=== PATIENT | male | born 1940 | race Caucasian/White ===

== ENCOUNTER 2022-07-11 20:07 | Emergency (ER) | payer MEDICARE, OTHER ==
[2022-07-11] MEDS ORDERED: TETANUS/DIPHTHERIA/PERTUSSIS 0.5 ML SYRINGE IM ONE (20:13)
[2022-07-11] MEDS ORDERED: LIDOCAINE 1%-EPI 1:100000 20 ML MDV SUBQ STA (20:13)
--- NOTE | 2022-07-11 20:15 | ED Physician Documentation ---
PD HPI HEAD INJURY - Stated complaint Stated Complaint: GLF FACE LAC - History obtained from History obtained from: Patient - Additional information Additional information: 81-year-old gentleman on Eliquis with unknown tetanus status was going up a single steps to get in his house with his arms full and slipped forward and hit his head on the door. This happened just about 25 minutes ago. There is no loss of consciousness. He has a mild headache. He has 2 large wounds to his forehead. No other injuries. PD PAST MEDICAL HISTORY - Present Medications Home Medications: Ambulatory Orders Medication Instructions Recorded Confirmed Apixaban [Eliquis] 2.5 mg PO BID 07/11/22 07/11/22 Bacitracin Zinc Oint 1 applic TOP BID #1 each 07/11/22 Febuxostat [Uloric] 40 mg PO DAILY 07/11/22 07/11/22 Fluticasone [Flonase] 2 sprays FITZ BID 07/11/22 07/11/22 Hydralazine HCl 150 mg PO DAILY 07/11/22 07/11/22 Metoprolol Succinate [Kapspargo 50 mg PO DAILY 07/11/22 07/11/22 Sprinkle] Torsemide 20 mg PO DAILY 07/11/22 07/11/22 Valsartan/Hydrochlorothiazide 1 each PO DAILY 07/11/22 07/11/22 [Diovan Hct 320-25 mg Tablet] - Allergies Allergies/Adverse Reactions: Allergies Allergy/AdvReac Type Severity Reaction Status Date / Time No Known Drug Allergies Allergy Verified 07/11/22 20:28 PD ED PE NORMAL - Vitals Vital signs reviewed: Yes - General General: Alert and oriented X 3, No acute distress - HEENT HEENT: PERRL, EOMI, Other (There are 4 lacerations to the forehead, 2 of them are small measuring about 1 cm each, 2 are larger measuring 3 and 4 cm respectively. They're mostly vertical.) - Neck Neck: Supple, no meningeal sign, No bony TTP - Neuro Neuro: Alert and oriented X 3, No motor deficit, No sensory deficit, Normal speech Eye Opening: Spontaneous Motor: Obeys Commands Verbal: Oriented GCS Score: 15 - Psych Psych: Normal mood, Normal affect Results - Vitals Vitals: Vital Signs - 24 hr 07/11/22 20:07 Temperature 36.4 C L Heart Rate 72 Respiratory 16 Rate Blood Pressure 117/72 O2 Saturation 100 Oxygen O2 Source Room air - Rads (name of study) CT of the head and cervical spine show chronic and degenerative changes without acute fractures or intracranial injury. Relevant Findings:: Final report received, EMP independent interpretation of test Procedures - Laceration (location) Forehead laceration #1 Length in cm: 4 Wound type: Linear, Into subcut fat Neurovascular status: Sensory intact, Motor intact Anesthesia: Lidocaine 1% with epi Wound preparation: Irrigated copiously NS Skin layer closure: Prolene, Interrupted, Size #-0 - enter number (6-0), Sutures - enter # (14) Other: Patient tolerated well, No complications, Neurovascular intact, Tetanus booster given Forehead laceration #2 Length in cm: 3 Wound type: Linear, Into subcut fat Neurovascular status: Sensory intact, Motor intact Tendon involvement: Tendon intact Anesthesia: Lidocaine 1% with epi Wound preparation: Irrigated copiously NS Skin layer closure: Prolene, Size #-0 - enter number (6-0), Sutures - enter # (9) Other: Patient tolerated well, No complications, Neurovascular intact, Tetanus booster given Forehead laceration #3 Length in cm: 1 Wound type: Linear, Into subcut fat Anesthesia: Lidocaine 1% with epi Wound preparation: Irrigated copiously NS Skin layer closure: Prolene, Size #-0 - enter number (6-0), Sutures - enter # (1) Other: Patient tolerated well, No complications, Neurovascular intact, Tetanus booster given Forehead laceration #4 Length in cm: 1 Wound type: Linear, Into subcut fat Anesthesia: Lidocaine 1% with epi Wound preparation: Irrigated copiously NS Skin layer closure: Prolene, Interrupted, Size #-0 - enter number (6-0), Sutures - enter # (1) Departure - Departure Disposition: 01 Home, Self Care Clinical Impression: Laceration of multiple sites of face Condition: Good Record reviewed to determine appropriate education?: Yes Instructions: ED Laceration Facial Sutr Tape Prescriptions: Bacitracin Zinc Oint 1 applic TOP BID #1 each Comments: Come back for any signs of infection which would include: Redness, swelling, drainage, increased pain, or fevers. You can wash it soap and water. Keep it covered and moist with bacitracin ointment which is available over the counter; avoid neosporin. Follow-up with your physician in 6-7 days for suture removal.
--- NOTE | 2022-07-11 20:38 | CT Report ---
PROCEDURE: HEAD WO INDICATIONS: head inj TECHNIQUE: Noncontrast 4.5 mm thick angled axial sections acquired from the foramen magnum to the vertex. For r adiation dose reduction, the following was used: automated exposure control, adjustment of mA and/or kV according to patient size. COMPARISON: None. FINDINGS: Image quality: Good CSF spaces: Basal cisterns are patent. Lateral ventricles are symmetric. Volume: Vascular calcifications. 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 Volume loss is present. These findings are moderate. Brain: No intracranial hemorrhage. Cain-white differentiation is grossly maintained. More focal hypo attenuation is present within the anterior right frontal lobe (3/) Craniofacial structures: No displaced fracture. Sinuses are clear. Orbits are intact. IMPRESSION: No acute intracranial hemorrhage. Suspected chronic changes, including a focal area of hypoattenuatio n in the right frontal lobe, possibly an area of injury such as infarct (/), less likely edema rel ated to an underlying malignancy. Consider comparison to priors from outside, if available, versus MR I. Reviewed by: Elan Cox MD on 07/11/2022 8:37 PM PDT Approved by: Elan Cox MD on 07/11/2022 8:37 PM PDT Station ID: [id number]
--- NOTE | 2022-07-11 20:42 | CT Report ---
PROCEDURE: CERVICAL SPINE WO INDICATIONS: head inj TECHNIQUE: Noncontrast 3 mm thick sections acquired from the skull base to the T4 level. Sagittal and coronal r eformats were then constructed. For radiation dose reduction, the following was used: automated exp osure control, adjustment of mA and/or kV according to patient size. COMPARISON: None. FINDINGS: Image quality: Good Bones: No acute vertebral body height loss identified. No traumatic subluxation. Moderate to severe d egenerative changes are unifocal metastasis. Then, prominent pannus around the C1-C2 articulation. Tr alejandra anterolisthesis of C2 on C3 and C3 on C4. Soft tissues: There is prevertebral soft tissue thickening that appears to be lipomatosis. Vascular c alcifications. Partially seen large left pleural effusion and underlying opacity. IMPRESSION: Moderate to severe degenerative changes, without definite acute fracture or traumatic subluxation. De generative changes limit evaluation, however. Prevertebral soft tissue thickening is favored to repre sent lipomatosis. Gas around C1-C2 articulation, possibly also related to degenerative changes. If th ere is high concern for further derangement, consider MRI evaluation. Partially seen large left pleural effusion. Reviewed by: Elan Cox MD on 07/11/2022 8:41 PM PDT Approved by: Elan Cox MD on 07/11/2022 8:41 PM PDT Station ID: [id number]
[2022-07-11] MEDS: BACITRACIN ZINC OINT 1 PACKET TOP STA ×2 (21:09→21:11)
[2022-07-11 21:23] VITALS: BP 107/77
== END 2022-07-11 21:23 | disposition home or self-care (01) ==
LOC: ED 20:07
DX: S01.81XA Laceration without foreign body of other part of head, initial encounter (principal); W10.9XXA Fall (on) (from) unspecified stairs and steps, initial encounter; Y93.89 Activity, other specified; Y92.008 Other place in unspecified non-institutional (private) residence as the place of occurrence of the external cause
CPT/HCPCS: 12015; 70450; 72125; 90471; 90715; 99284; A9270